=== PATIENT | male | born 1935 | race Caucasian/White ===

== ENCOUNTER → 2016-11-01 | Outpatient (CLI) | payer MEDICARE ==
--- NOTE | 2016-11-01 10:49 | RADRPT ---
EXAM DATE/TIME: 11/01/2016 00:00 [place] COMPARISON: No previous studies available for comparison. INDICATIONS : Dysphagia. FLUORO TIME: 1.7 minutes IMAGE COUNT: CONTRAST: Dose as prescribed by speech pathologist. MEDICAL HISTORY : Carcinoma, esophageal. SURGICAL HISTORY : Tongue and facial reconstruction. ENCOUNTER: Initial ACUITY: >1 year PAIN SCORE: 0/10 LOCATION: Bilateral esophagus. FINDINGS: A modified barium swallow was performed with speech pathology. Patient was given a variety of liquids and solids to swallow. Aspiration is observed with multiple liquids. For a full detailed report, see report by the speech pathologist. CONCLUSION: Aspiration observed with multiple liquids. For detailed report please see speech pathology report. Colby Alston MD on November 01, 2016 at 10:46 Board Certified Radiologist. This report was verified electronically.
== END ==
LOC: HRAD 09:51
DX: R13.10 Dysphagia, unspecified (principal)
CPT/HCPCS: 74230; 92611; G8996; G8997; G8998